=== PATIENT | female | born 1960 | race Caucasian/White ===

== ENCOUNTER → 2019-09-14 | Outpatient (CLI) | payer OTHER ==
[~2019-09-14] MED LIST: ADULT ASPIRIN81 MG; TENORMIN25 MG; VITAMINA D
== END | disposition home or self-care (01) ==
LOC: TOM 11:51
DX: G45.8 Other transient cerebral ischemic attacks and related syndromes (principal)

== ENCOUNTER 2019-09-15 21:37 | Emergency (ER) | payer OTHER ==
[~2019-09-15] VITALS: Ht 157.5 cm; Wt 55.8 kg
[2019-09-15] MEDS ORDERED: ADULT ASPIRIN81 MG (22:10)
[2019-09-15] MEDS ORDERED: VITAMINA D (22:10)
[2019-09-15] MEDS ORDERED: TENORMIN25 MG (22:10)
== END 2019-09-16 12:22 | disposition home or self-care (01) ==
LOC: ER 21:37
DX: H81.13 Benign paroxysmal vertigo, bilateral (principal)

== ENCOUNTER 2020-09-05 06:35 | Day surgery (SDC) | payer OTHER ==
[2020-09-05] MEDS ORDERED: CEFADROXIL500 MG PO (10:00)
[2020-09-05] MEDS ORDERED: ALEVE220 M1 PO (10:00)
[2020-09-05] MEDS ORDERED: ULTRACET PO (10:00)
== END 2020-09-05 15:35 | disposition home or self-care (01) ==
LOC: CIR.AMB 06:35
PROVIDERS: ATTEND Orthopaedic Surgery
DX: S83.232A Complex tear of medial meniscus, current injury, left knee, initial encounter (principal); M67.362 Transient synovitis, left knee; M94.262 Chondromalacia, left knee; M23.42 Loose body in knee, left knee; Z20.822 Contact with and (suspected) exposure to COVID-19

== ENCOUNTER 2022-08-05 10:19 | Outpatient (CLI) | payer OTHER ==
[~2022-08-05 10:19] MED LIST changes: +ALEVE220 M1 PO; +CEFADROXIL500 MG PO; +ULTRACET PO
== END 2022-08-05 10:26 | disposition home or self-care (01) ==
LOC: MAMO-SONO 10:19
PROVIDERS: ATTEND Obstetrics & Gynecology
DX: Z12.31 Encounter for screening mammogram for malignant neoplasm of breast (principal); N60.12 Diffuse cystic mastopathy of left breast; N60.11 Diffuse cystic mastopathy of right breast; N91.1 Secondary amenorrhea; D25.1 Intramural leiomyoma of uterus; D25.2 Subserosal leiomyoma of uterus

== ENCOUNTER 2022-08-05 11:29 | Outpatient (CLI) | payer OTHER | END 2022-08-05 11:44 | disposition home or self-care (01) | LOC: NUCLEAR 11:29 | PROVIDERS: ATTEND Obstetrics & Gynecology | DX: M81.0 Age-related osteoporosis without current pathological fracture (principal); Z13.820 Encounter for screening for osteoporosis; M85.80 Other specified disorders of bone density and structure, unspecified site ==

== ENCOUNTER 2022-12-06 10:51 | Inpatient (IN) | payer OTHER ==
[~2022-12-06] VITALS: Ht 157.5 cm; Wt 57.6 kg
== END 2022-12-15 19:01 | disposition home or self-care (01) | DRG 339 ==
LOC: ER 10:51 → SURH 19:33
PROVIDERS: Surgery; ADMIT Specialist; ATTEND Specialist
PROC: 0D9J4ZZ Drainage of Appendix, Percutaneous Endoscopic Approach (ICD-10-PCS; 2022-12-06)
PROC: BW21YZZ Computerized Tomography (CT Scan) of Abdomen and Pelvis using Other Contrast (ICD-10-PCS; 2022-12-06)
PROC: 0DTJ4ZZ Resection of Appendix, Percutaneous Endoscopic Approach (ICD-10-PCS; principal; 2022-12-06 20:00)
PROC: BW21YZZ Computerized Tomography (CT Scan) of Abdomen and Pelvis using Other Contrast (ICD-10-PCS; 2022-12-11)
PROC: BW21YZZ Computerized Tomography (CT Scan) of Abdomen and Pelvis using Other Contrast (ICD-10-PCS; 2022-12-14)
DX: K35.33 Acute appendicitis with perforation, localized peritonitis, and gangrene, with abscess (principal); J90 Pleural effusion, not elsewhere classified; R10.31 Right lower quadrant pain; D72.829 Elevated white blood cell count, unspecified; I10 Essential (primary) hypertension; B96.29 Other Escherichia coli [E. coli] as the cause of diseases classified elsewhere; B95.2 Enterococcus as the cause of diseases classified elsewhere; B95.4 Other streptococcus as the cause of diseases classified elsewhere; B96.89 Other specified bacterial agents as the cause of diseases classified elsewhere; R05.9 Cough, unspecified

== ENCOUNTER 2024-05-16 06:00 | Day surgery (SDC) | payer OTHER ==
[2024-05-09 09:21] LABS: HEMATOCRIT 41.1 % (36.0-45.00); HEMOGLOBIN 14.1 g/dL (12.0-15.00); MEAN CELL VOLUME 89.1 fL (80.00-100.00); MEAN CORPUSCULAR HEMOGLOBIN 30.5 pg (27.00-32.0); MEAN CORPUSCULAR HGB CONC 34.3 g/dl (32.0-36.0); PLATELET COUNT 310 K/uL (150-450); RED BLOOD COUNT 4.61 M/uL (4.00-6.00); RED CELL DISTRIBUTION WIDTH 13.1 % (11.5-14.5)
[2024-05-09 09:23] LABS: URINE APPEARANCE Clear; URINE BILIRRUBIN Negative (NEGATIVE); URINE BLOOD Negative; URINE COLOR Yellow; URINE GLUCOSE Negative (NEGATIVE); URINE KETONE Negative (NEGATIVE); URINE LEUKOCYTE Negative; URINE NITRATE Negative; URINE PROTEIN Negative (NEGATIVE); URINE UROBILINOGEN 0.2 E.U./dl
[2024-05-09 09:27] LABS: URINE BACTERIA 34.2 uL (0.0-1933); URINE RBC 14.8 uL (0.0-20.8)
[2024-05-09 09:31] VITALS: BP 117/73
[2024-05-09 09:37] LABS: URINE CAST 0.58 uL (0.0-1.40)
[2024-05-09 09:45] LABS: INR 0.96; PARTIAL THROMBOPLASTIN TIME 26.7 SECONDS (22.0-34.0); PROTHROMBIN TIME 10.5 SECONDS (9.0-11.5)
[2024-05-09 09:59] LABS: ALBUMIN 3.8 gm/dL (3.4-5.0); BILIRUBIN TOTAL 0.41 mg/dL (0.3-1.2); CALCIUM 9.7 mg/dL (8.5-10.1); CREATININE SERUM 0.83 mg/dL (0.55-1.02); GFR 69.66; GLOBULINA 3.4 G/DL (2.4-3.5); POTASSIUM 4.77 mEq/L (3.5-5.1); TOTAL PROTEIN 7.2 gm/dL (6.4-8.2)
[~2024-05-16] VITALS: Ht 157.5 cm; Wt 59.0 kg
[2024-05-16] MEDS ORDERED: CEFAZOLIN SODIUM 1,000 MG VIAL ONE (09:43)
[2024-05-16] MEDS ORDERED: BUPIVACAINE HCL/MPF 0.5% 30ML VIAL ONE (10:22)
[2024-05-16] MEDS ORDERED: METHYLPREDNISOLONE ACETATE 80 MG/ML VIAL ONE (10:22)
[2024-05-16] MEDS ORDERED: ASA325 M1 PO (11:21)
[2024-05-16] MEDS ORDERED: TRAM1TAB98 PO (11:21)
[2024-05-16] MEDS ORDERED: CEFADROXIL500 MG PO (11:21)
== END 2024-05-16 16:18 | disposition home or self-care (01) ==
LOC: CIR.AMB 06:00
PROVIDERS: ATTEND Orthopaedic Surgery
DX: S83.271A Complex tear of lateral meniscus, current injury, right knee, initial encounter (principal); S83.231A Complex tear of medial meniscus, current injury, right knee, initial encounter; M17.11 Unilateral primary osteoarthritis, right knee; M22.41 Chondromalacia patellae, right knee; I10 Essential (primary) hypertension